=== PATIENT | female | born 1940 | race Hispanic/Latino ===

== ENCOUNTER 2017-03-03 23:53 | Emergency (ER) | payer MEDICARE, OTHER ==
[~2017-03-03] VITALS: Ht 162.6 cm; Wt 76.8 kg
[2017-03-03 23:55] VITALS: BP 219/107; PULSE 81; RESP 15; O2SAT 99
--- NOTE | 2017-03-04 00:16 | ED.REPORT ---
HPI-Allergic Reaction Date of Service Mar 04, 2017 ED Provider: Dr. Bush Pt is a 76 year old female presenting to the ED complaining of a bee sting on the right side of her neck 2 hours ago. She states that she feels like she is having an allergic reaction and her throat is closing, and she has palpitations. Denies any wheezing or chest tightness. She reports that she has had similar reactions to bee stings in the past. Nursing Notes Stated Complaint: ALLERGIC REACTION/ BEE STING Chief Complaint: Allergic Reaction Nursing Notes Reviewed: Yes Allergies: Coded Allergies: acetaminophen (Verified Allergy, Unknown, 03/04/17) hydrocodone (Verified Allergy, Unknown, 03/04/17) Uncoded Allergies: SULFA (Allergy, Mild, 03/04/17) Scheduled Famotidine (Pepcid) 20 Mg Tablet 20 MG PO BID Loratadine (Claritin) 10 Mg Capsule 10 MG PO DAILY Prednisone (PredniSONE) 20 Mg Tablet 60 MG PO DAILY General Time Seen by MD: 00:15 Chief Complaint Allergic reaction, Insect bite/sting Hx Obtained From: Patient Arrived By: Walk-in Onset Occurred: 1 - 4 hours ago Symptom Duration: Since onset Progression Since Onset: Constant Severity: Current: No pain currently Severity: Maximum: No pain Recent Healthcare: No recent doctor visit, No recent hospitalization Similar Sx Previous: Yes Past Medical History Past Medical History denies Past Surgical History denies Smoking History Unknown if Ever Smoker Ambulatory Status Independent Review of Systems Ears / Nose / Throat: Reports: Throat swelling Respiratory: Denies: Wheezing Skin: Reports Rash (Bee sting) Allergy / Immune: Reports: Allergic reaction Complete sys rev & neg: except as marked. Cardiovascular: Denies: Chest pain Physical Exam Initial Vital Signs Vital Signs (First) Date Time Temp Pulse Resp B/P Pulse Ox O2 Delivery O2 Flow Rate FiO2 03/03/17 23:55 36.6 81 15 219/107 99 Room Air Initial VS: Reviewed Head / Eyes: Atraumatic, Normocephalic, PERRL Neck: Supple, Non-tender, Full range of motion Abdomen / GI: Soft, Non-tender, No guarding, No rebound, No distention Extremities: Vascular intact, Neuro intact, No swelling, No tenderness Neurologic: Alert, Oriented, Nonfocal Psychiatric: Mood/affect normal, Behavior normal, Normal thought content General/Constitutional: Awake, Alert, No acute distress, Well appearing Voice sounds a little raspy. Respiratory / Chest: Atraumatic, Breath sounds NL, Breath sounds = bilat, No respiratory distress, No stridor Cardiovascular: Heart rate NL, Regular rhythm, Heart sounds NL ENT: Atraumatic, Airway patent, Mucous membranes moist, Pharynx NL No swelling appreciated. Interpretation & Diagnostics ECG Interpretation ECG Interpretation: Ectopic atrial tachycardia. Converging & ST 1 PVC. No ischemic changes. Time: 01:09 Interpreted by: ED physician Abnormal Rate: Rate (123) ECG Interpretation: Sinus tachycardia with APC. No ischemic changes. Time: 01:10 Interpreted by: ED physician Abnormal Rate: Rate (116) Re-Eval/Medical Decision Med Decision/Clinical Course 76-year-old presents with a bee sting on her lateral neck, and subjective sensation of some swelling in her throat. No stridor no other objective findings on exam. Clinically better after Benadryl, Pepcid, Decadron. She was already feeling shaky and tachycardic and refused racemic epinephrine. She was moderately hypertensive and tachycardic and improved after a single dose of labetalol. Discharged now with a four-day course of prednisone, Claritin Pepcid, Benadryl when necessary, and prompt return if worse. Re-Evaluation/Progress : Time of Eval: 01:01 Patient Status: Condition improved Re-Evaluation/Progress Note: Pt and concerned that she is shaking after receiving medication. Her throat swelling is feeling better than before. Counseled Regarding: Diagnosis, Lab results, Need for follow-up, When/why to return to ED Discharge & Departure Primary Impression: Allergic reaction Encounter type: initial encounter Qualified Code: T78.40XA - Allergy, unspecified, initial encounter Additional Impressions: Hypertension Ectopic atrial tachycardia Insect sting Disposition: Home Discharge Condition All VS Reviewed: Yes Condition: Improved Patient Instructions: Anaphylaxis (ED), Insect Bite or Sting (ED) Additional Instructions: Continue prednisone three Daily for three days. Claritin daily. Pepcid twice daily. Follow-up with your doctor in the office. Return if any worsening issues with your breathing or throat. Continuar prednisona stephan Diariamente cecilio stephan stevens. Claritin diariamente. Pepcid dos veces al da. Seguimiento con portillo mdico en la oficina. Regrese si hay problemas de empeoramiento con portillo respiracin o garganta. Referrals: [facility] Dinoibjeremiah Attestation Portions of this note were transcribed by Opal Mckeon. I, Dr. Bush personally performed the history, physical exam and medical decision-making; I reviewed and confirmed the accuracy of the information in the transcribed note. Signed by: Jitendra Carr, 03/04/2017 at 0328. copies to: [facility] Stevie Bush MD Mar 04, 2017 00:16 OPAL MCKEON Mar 04, 2017 00:22
[2017-03-04] MEDS ORDERED: Albuterol 2.5 mg/3 mL Inhalation Solution NEB ONE (00:20)
[2017-03-04] MEDS ORDERED: Dexamethasone Inj 10 MG in 0.9% Sodium Chloride-Pha MIX 50 ML IV ONE (00:20)
[2017-03-04] MEDS ORDERED: Famotidine Inj 20 MG in IV Premix 1 EACH IV ONE (00:20)
[2017-03-04] MEDS ORDERED: Epinephrine Racemic 2.25% 0.5 mL Inhalation Solution NEB ONE (00:20)
[2017-03-04 01:30] VITALS: BP 202/105; PULSE 96; RESP 17; O2SAT 97
[2017-03-04] MEDS ORDERED: Labetalol 5 mg/mL 4 mL Inj IVPUSH ONE (01:30)
[2017-03-04 02:00] VITALS: BP 169/89; PULSE 81; RESP 18; O2SAT 97
[2017-03-04 02:30] VITALS: BP 165/90; PULSE 80; RESP 16; O2SAT 97
[2017-03-04 03:03] VITALS: BP 168/77; PULSE 80; RESP 16; O2SAT 98
[2017-03-04] MEDS ORDERED: LORA10CA PO (03:25)
[2017-03-04] MEDS ORDERED: FAMO20T PO (03:25)
[2017-03-04] MEDS ORDERED: PRE20 PO (03:25)
[2017-03-04 03:43] VITALS: BP 154/72; PULSE 77; RESP 12; O2SAT 98
== END 2017-03-04 03:44 | disposition home or self-care (01) ==
LOC: SED 23:53
DX: I10 Essential (primary) hypertension (principal); T63.441A Toxic effect of venom of bees, accidental (unintentional), initial encounter; I47.1 Supraventricular tachycardia; Z88.5 Allergy status to narcotic agent; Z88.8 Allergy status to other drugs, medicaments and biological substances; Y93.89 Activity, other specified; Y92.89 Other specified places as the place of occurrence of the external cause; Y99.8 Other external cause status
CPT/HCPCS: 93005; 96374; 96375; 99284; J1100; J1200; J3490